=== PATIENT | female | born 1950 | race Caucasian/White ===

== ENCOUNTER 2017-12-29 10:00 | Outpatient (CLI) | payer MEDICARE, BC, SELFPAY | END 2017-12-29 10:01 | PROVIDERS: PCP Family Medicine; Visit Provider Psychiatry & Neurology Neurology | DX: G70.00 Myasthenia gravis without (acute) exacerbation (principal) | CPT/HCPCS: 99214 ==

== ENCOUNTER → 2018-03-16 14:44 | Outpatient (BNVA) | payer MEDICARE, BC, SELFPAY | PROVIDERS: PCP Family Medicine; Visit Provider Psychiatry & Neurology Neurology | DX: G70.00 Myasthenia gravis without (acute) exacerbation (principal) | CPT/HCPCS: 99213; 99214 ==

== ENCOUNTER → 2018-06-15 10:19 | Outpatient (BNVA) | payer MEDICARE, BC, SELFPAY | PROVIDERS: PCP Family Medicine; Visit Provider Psychiatry & Neurology Neurology | DX: G70.00 Myasthenia gravis without (acute) exacerbation (principal) | CPT/HCPCS: 99214 ==

== ENCOUNTER → 2018-08-06 12:12 | Outpatient (BNVA) | payer MEDICARE, BC, SELFPAY | PROVIDERS: PCP Family Medicine; Visit Provider Psychiatry & Neurology Neurology | DX: G70.00 Myasthenia gravis without (acute) exacerbation (principal); G91.9 Hydrocephalus, unspecified | CPT/HCPCS: 62270; 99213 ==

== ENCOUNTER 2018-10-27 11:20 | Outpatient (REF) | payer MEDICARE, BC, SELFPAY ==
[2018-10-27 22:16] LABS: Abs Immature Grans 0.01 k/cumm (0.0-0.09); Absolute Basophil Count 0.02 k/cumm (0.0-0.2); Absolute Eosinophil Count 0.09 k/cumm (0.0-0.7); Absolute Lymphocyte Count 1.29 k/cumm (1.2-3.4); Absolute Monocyte Count 0.66 k/cumm (0.11-0.7); Absolute Neutrophil Count 2.85 k/cumm (1.2-6.7); Basophils % 0.4; Eosinophils % 1.8; Immature Grans % 0.2; Lymphocytes % 26.2; Mean Corp. HGB Concentration 32.4 g/dL (32.0-36.0); Mean Corpuscular Hemoglobin 30.7 pg (27.0-33.0); Mean Platelet Volume 9.3 fL (8.0-11.0); Monocytes % 13.4; Platelet Count 407 x1000/uL (130-400); RBC 3.58 m/cumm (4.00-5.20); RBC Distribution Width 12.2 % (11.7-14.6); White Blood Cell Count 4.92 k/cumm (4.4-10.8)
[2018-10-27 22:24] LABS: Anion Gap 9.4 mmol/L (3-11); BUN 15 mg/dL (7-18); CO2 27.6 mmol/L (21.0-32.0); CREATININE 0.73 mg/dL (0.55-1.02); Calcium 9.7 mg/dL (8.5-10.1); Chloride 100 mmol/L (98-107); Glucose 80 mg/dL (70-100); Magnesium 2.2 mg/dL (1.8-2.4); Sodium 137 mmol/L (136-145)
== END 2018-10-27 11:40 ==
LOC: NCHCN 11:20
PROVIDERS: PCP Family Medicine; Visit Provider Family Medicine
DX: Z01.810 Encounter for preprocedural cardiovascular examination (principal); R25.2 Cramp and spasm; G91.2 (Idiopathic) normal pressure hydrocephalus
CPT/HCPCS: 80048; 83735; 85025

== ENCOUNTER 2019-01-28 10:40 | Outpatient (REF) | payer MEDICARE, BC, SELFPAY ==
[2019-01-28 21:26] LABS: Abs Immature Grans 0.01 k/cumm (0.0-0.09); Absolute Basophil Count 0.01 k/cumm (0.0-0.2); Absolute Eosinophil Count 0.04 k/cumm (0.0-0.7); Absolute Lymphocyte Count 0.96 k/cumm (1.2-3.4); Absolute Monocyte Count 0.64 k/cumm (0.11-0.7); Absolute Neutrophil Count 2.21 k/cumm (1.2-6.7); Basophils % 0.3; HCT 35.5 % (36.0-46.0); HGB 11.8 g/dL (12.0-15.5); Immature Grans % 0.3; Lymphocytes % 24.8; Mean Corp. HGB Concentration 33.2 g/dL (32.0-36.0); Mean Corpuscular Hemoglobin 30.5 pg (27.0-33.0); Mean Corpuscular Volume 91.7 fL (80-95); Mean Platelet Volume 9.2 fL (8.0-11.0); Monocytes % 16.5; Neutrophils % 57.1; Platelet Count 370 x1000/uL (130-400); RBC 3.87 m/cumm (4.00-5.20); RBC Distribution Width 13.7 % (11.7-14.6); White Blood Cell Count 3.87 k/cumm (4.4-10.8)
[2019-01-28 21:33] LABS: Iron 87 ug/dL (50-175); Total Iron Binding Capacity 253 ug/dL (250-450); Transferrin Sat 34 % (15-50)
[2019-01-28 22:17] LABS: ALT 24 U/L (14-59); AST 24 U/L (15-37); Albumin 4.2 g/dL (3.4-5.0); Alkaline Phosphatase 97 U/L (46-116); BUN 12 mg/dL (7-18); Bilirubin, Total 0.3 mg/dL (0.2-1.0); CREATININE 0.74 mg/dL (0.55-1.02); Calcium 9.6 mg/dL (8.5-10.1); Chloride 98 mmol/L (98-107); Ferritin 319 ng/mL (8-388); Glucose 84 mg/dL (70-100); Potassium 4.6 mmol/L (3.5-5.1); Sodium 133 mmol/L (136-145); Total Protein 7.7 g/dL (6.4-8.2); Vitamin B12 552 pg/mL (193-986)
[2019-01-28 22:49] LABS: Folate > 20.0 ng/mL (8.6-20.0)
[2019-01-28 22:56] LABS: Lipase 254 U/L (73-393)
== END 2019-01-28 11:00 ==
LOC: NCHCN 10:40
PROVIDERS: PCP Family Medicine; Visit Provider Family Medicine
DX: R10.9 Unspecified abdominal pain (principal); D53.9 Nutritional anemia, unspecified; R74.0 Nonspecific elevation of levels of transaminase and lactic acid dehydrogenase [LDH]
CPT/HCPCS: 80053; 83690; 82607; 82728; 82746; 83540; 83550; 85025

== ENCOUNTER 2019-06-01 08:33 | Outpatient (REF) | payer MEDICARE, BC, SELFPAY | END 2019-06-01 08:53 | LOC: NCHCN 08:33 | PROVIDERS: PCP Family Medicine; Visit Provider Family Medicine | DX: N39.46 Mixed incontinence (principal) | CPT/HCPCS: 81003 ==

== ENCOUNTER 2019-06-02 10:19 | Outpatient (REF) | payer MEDICARE, BC, SELFPAY ==
[2019-06-02 23:54] LABS: Bilirubin Negative (Negative); Blood Negative (Negative); Clarity Clear (Clear); Glucose Negative (Negative); Ketones Negative (Negative); Leukocyte Esterase Negative (Negative); Nitrite Negative (Negative); Specific Gravity 1.015 (1.005-1.025); Urobilinogen 0.2 EU/dL (Up TO 0.2)
== END 2019-06-02 10:39 ==
LOC: NCHCN 10:19
PROVIDERS: PCP Family Medicine; Visit Provider Family Medicine
DX: N39.46 Mixed incontinence (principal)
CPT/HCPCS: 81003

== ENCOUNTER 2019-11-25 21:28 | Outpatient (REF) | payer MEDICARE, BC, SELFPAY ==
[2019-11-25 21:29] LABS: Vitamin D 25 Total 128.1 ng/ml (30-100)
== END 2019-11-25 21:48 ==
LOC: NCHCN 21:28
PROVIDERS: PCP Family Medicine; Visit Provider Family Medicine
DX: M81.0 Age-related osteoporosis without current pathological fracture (principal)
CPT/HCPCS: 82306

== ENCOUNTER 2020-03-20 19:38 | Outpatient (REF) | payer MEDICARE, BC, SELFPAY ==
[2020-03-20 21:35] LABS: Abs Immature Grans 0.02 10^3/uL (0.0-0.06); Absolute Basophil Count 0.03 10^3/uL (0.0-0.2); Absolute Eosinophil Count 0.04 10^3/uL (0.0-0.7); Absolute Lymphocyte Count 1.74 10^3/uL (1.2-3.4); Absolute Monocyte Count 0.57 10^3/uL (0.1-0.8); Absolute Neutrophil Count 3.72 10^3/uL (1.2-6.7); Basophils % 0.5; Eosinophils % 0.7; HCT 36.2 % (36.0-46.0); HGB 11.7 g/dL (11.2-15.7); Immature Grans % 0.3; Lymphocytes % 28.4; MCH 31.2 pg (27.0-33.0); MCHC 32.3 % (32.0-36.0); MCV 96.5 fL (80-95); MPV 8.8 fL (8.0-11.0); Monocytes % 9.3; Neutrophils % 60.8; Nucleated RBC 0 %; Platelet Count 406 10^3/uL (130-400); RBC 3.75 10^6/uL (3.93-5.22); RDW 13.2 % (11.7-14.6); RDW-SD 47.1 fL; WBC 6.12 10^3/uL (4.4-10.8)
[2020-03-20 22:23] LABS: ALT 27 U/L (14-59); AST 25 U/L (15-37); Alkaline Phosphatase 69 U/L (46-116); Anion Gap 6.3 mmol/L (3-11); BUN 16 mg/dL (7-18); Bilirubin, Total 0.3 mg/dL (0.2-1.0); CO2 28.7 mmol/L (21.0-32.0); CREATININE 0.88 mg/dL (0.55-1.02); Calcium 9.5 mg/dL (8.5-10.1); Chloride 100 mmol/L (98-107); Glucose 98 mg/dL (74-106); Potassium 4.3 mmol/L (3.5-5.1); Sodium 135 mmol/L (136-145); Total Protein 7.1 g/dL (6.4-8.2)
[2020-03-20 23:10] LABS: Vitamin D 25 Total 115.4 ng/ml (30-100)
== END 2020-03-20 19:58 ==
LOC: NCHCN 19:38
PROVIDERS: PCP Family Medicine; Visit Provider Nurse Practitioner Community Health
DX: G70.00 Myasthenia gravis without (acute) exacerbation (principal); Z00.01 Encounter for general adult medical examination with abnormal findings
CPT/HCPCS: 80053; 82306; 85025

== ENCOUNTER 2020-04-18 18:50 | Outpatient (REF) | payer MEDICARE, BC, SELFPAY ==
[2020-04-20 05:49] LABS: Vitamin D 25 Total 118.7 ng/ml (30-100)
== END 2020-04-18 19:10 ==
LOC: NCHCN 18:50
PROVIDERS: PCP Family Medicine; Visit Provider Family Medicine
DX: M81.0 Age-related osteoporosis without current pathological fracture (principal)
CPT/HCPCS: 82306

== ENCOUNTER 2020-06-02 15:40 | Outpatient (REF) | payer MEDICARE, BC, SELFPAY ==
[2020-06-02 21:28] LABS: Abs Immature Grans 0.05 10^3/uL (0.0-0.06); Absolute Basophil Count 0.03 10^3/uL (0.0-0.2); Absolute Eosinophil Count 0.01 10^3/uL (0.0-0.7); Absolute Lymphocyte Count 1.23 10^3/uL (1.2-3.4); Absolute Monocyte Count 0.58 10^3/uL (0.1-0.8); Absolute Neutrophil Count 7.38 10^3/uL (1.2-6.7); Basophils % 0.3; Eosinophils % 0.1; HCT 32.7 % (36.0-46.0); HGB 10.7 g/dL (11.2-15.7); Immature Grans % 0.5; Lymphocytes % 13.3; MCHC 32.7 % (32.0-36.0); MCV 100.9 fL (80-95); MPV 8.4 fL (8.0-11.0); Monocytes % 6.3; Neutrophils % 79.5; Nucleated RBC 0 %; Platelet Count 420 10^3/uL (130-400); RBC 3.24 10^6/uL (3.93-5.22); RDW 13.7 % (11.7-14.6); RDW-SD 51.3 fL; WBC 9.28 10^3/uL (4.4-10.8)
[2020-06-02 21:56] LABS: ALT 24 U/L (14-59); AST 20 U/L (15-37); Albumin 3.8 g/dL (3.4-5.0); Alkaline Phosphatase 62 U/L (46-116); Anion Gap 9.7 mmol/L (3-11); BUN 17 mg/dL (7-18); Bilirubin, Total 0.2 mg/dL (0.2-1.0); CO2 28.3 mmol/L (21.0-32.0); CREATININE 0.78 mg/dL (0.55-1.02); Calcium 8.8 mg/dL (8.5-10.1); Chloride 99 mmol/L (98-107); Glucose 102 mg/dL (74-106); Potassium 4.1 mmol/L (3.5-5.1); Sodium 137 mmol/L (136-145); TSH 0.84 uIU/mL (0.36-3.74); Total Protein 6.8 g/dL (6.4-8.2)
== END 2020-06-02 16:00 ==
LOC: NCHCN 15:40
PROVIDERS: PCP Family Medicine; Visit Provider Psychiatry & Neurology Neurology
DX: G70.00 Myasthenia gravis without (acute) exacerbation (principal); R53.83 Other fatigue; N39.46 Mixed incontinence
CPT/HCPCS: 80053; 84443; 85025; 87086

== ENCOUNTER 2022-07-05 15:33 | Outpatient (CLI) | payer MEDICARE, SELFPAY ==
[2022-07-05 20:58] LABS: Anion Gap 7.1 mmol/L (3-11); BUN 16 mg/dL (7-18); CO2 26.9 mmol/L (21.0-32.0); Calcium 9.3 mg/dL (8.5-10.1); Chloride 97 mmol/L (98-107); Estimated GFR 59.49 (mL/min/1.73m2); Glucose 152 mg/dL (74-106); Potassium 4.3 mmol/L (3.5-5.1); Sodium 131 mmol/L (136-145)
== END 2022-07-05 15:34 | disposition home or self-care (01) ==
LOC: NCHCN 15:34
PROVIDERS: PCP Family Medicine; Visit Provider Family Medicine
DX: I10 Essential (primary) hypertension (principal)
CPT/HCPCS: 80048

== ENCOUNTER 2023-04-04 21:01 | Outpatient (REF) | payer MEDICARE, SELFPAY ==
[2023-04-04 21:12] LABS: HCT 22.4 % (36.0-46.0); MCH 34.3 pg (27.0-33.0); MCHC 32.6 % (32.0-36.0); MPV 9.5 fL (8.0-11.0); Platelet Count 355 10^3/uL (130-400); RBC 2.13 10^6/uL (3.93-5.22); RDW 15.3 % (11.7-14.6); RDW-SD 59.4 fL; WBC 5.65 10^3/uL (4.4-10.8)
[2023-04-04 21:22] LABS: Iron 38 ug/dL (50-170); Total Iron Binding Capacity 265 ug/dL (250-450); Transferrin Sat 14 % (15-50)
[2023-04-04 21:32] LABS: Ferritin 432 ng/mL (8-252)
[2023-04-04 21:44] LABS: MCV 105 fL (80-95)
[2023-04-04 21:50] LABS: HGB 7.3 g/dL (11.2-15.7)
== END 2023-04-04 21:02 | disposition home or self-care (01) ==
LOC: NCHCN 21:01
PROVIDERS: PCP Family Medicine; Visit Provider Family Medicine
DX: D64.9 Anemia, unspecified (principal)
CPT/HCPCS: 85027; 82728; 83540; 83550

== ENCOUNTER 2023-04-24 21:37 | Outpatient (REF) | payer MEDICARE, SELFPAY | END 2023-04-24 21:38 | disposition home or self-care (01) | LOC: NCHCN 21:37 | PROVIDERS: PCP Family Medicine; Visit Provider Family Medicine | DX: D53.9 Nutritional anemia, unspecified (principal) | CPT/HCPCS: 85018 ==

== ENCOUNTER 2023-06-02 15:23 | Outpatient (REF) | payer MEDICARE, SELFPAY ==
[2023-06-02 21:30] LABS: COMMENT (LAB VIEW ONLY) 98.53 mg/dL; Microalb ug/mg Crea 11.3 ug/mg Cr
== END 2023-06-02 15:24 | disposition home or self-care (01) ==
LOC: NCHCN 15:23
PROVIDERS: PCP Family Medicine; Visit Provider Family Medicine
DX: R73.03 Prediabetes (principal)
CPT/HCPCS: 82043; 82570

== ENCOUNTER 2023-08-25 11:04 | Outpatient (REF) | payer MEDICARE, SELFPAY ==
[2023-08-25 14:09] LABS: HCT 33.5 % (36.0-46.0); HGB 10.6 g/dL (11.2-15.7); MCH 31.3 pg (27.0-33.0); MCHC 31.6 % (32.0-36.0); MCV 99 fL (80-95); MPV 8.4 fL (8.0-11.0); Platelet Count 417 10^3/uL (130-400); RBC 3.39 10^6/uL (3.93-5.22); RDW 13.3 % (11.7-14.6); RDW-SD 47.8 fL; WBC 10.61 10^3/uL (4.4-10.8)
[2023-08-25 14:30] LABS: Hemoglobin A1C 6.2 % (<5.7)
[2023-08-25 14:36] LABS: Anion Gap 9.6 mmol/L (3-11); BUN 15 mg/dL (7-18); CO2 28.4 mmol/L (21.0-32.0); CREATININE 0.9 mg/dL (0.55-1.02); Calcium 9.7 mg/dL (8.5-10.1); Chloride 102 mmol/L (98-107); Estimated GFR 67.08 (mL/min/1.73m2); Ferritin 95 ng/mL (8-252); Glucose 101 mg/dL (74-106); Potassium 4.4 mmol/L (3.5-5.1); Sodium 140 mmol/L (136-145)
== END 2023-08-25 11:05 | disposition home or self-care (01) ==
LOC: NCHCN 11:04
PROVIDERS: PCP Family Medicine; Visit Provider Family Medicine
DX: R73.09 Other abnormal glucose (principal); D64.9 Anemia, unspecified; I10 Essential (primary) hypertension
CPT/HCPCS: 80048; 85027; 82728; 83036

== ENCOUNTER 2024-02-20 20:19 | Outpatient (REF) | payer MEDICARE, SELFPAY | END 2024-02-20 20:20 | disposition home or self-care (01) | LOC: NCHCN 20:19 | PROVIDERS: PCP Family Medicine; Visit Provider Family Medicine | DX: R35.0 Frequency of micturition (principal); R82.89 Other abnormal findings on cytological and histological examination of urine | CPT/HCPCS: 87086 ==

== ENCOUNTER 2025-01-13 17:15 | Outpatient (REF) | payer MEDICARE, SELFPAY ==
[2025-01-13 20:51] LABS: Abs Immature Grans 0.02 10^3/uL (0.0-0.06); HCT 29.5 % (36.0-46.0); HGB 9.5 g/dL (11.2-15.7); Immature Grans % 0.3 %; MCH 30.4 pg (27.0-33.0); MCHC 32.2 % (32.0-36.0); MCV 95 fL (80-95); MPV 8.5 fL (8.0-11.0); Platelet Count 434 10^3/uL (130-400); RBC 3.12 10^6/uL (3.93-5.22); RDW 14.4 % (11.7-14.6); RDW-SD 49.8 fL; WBC 7.20 10^3/uL (4.4-10.8)
[2025-01-13 21:22] LABS: Iron 39 ug/dL (50-170); Total Iron Binding Capacity 276 ug/dL (250-450)
[2025-01-13 21:47] LABS: ALT 19 U/L (14-59); AST 23 U/L (15-37); Albumin 3.9 g/dL (3.4-5.0); Alkaline Phosphatase 71 U/L (46-116); Anion Gap 8.4 mmol/L (3-11); BUN 19 mg/dL (7-18); Bilirubin, Total 0.2 mg/dL (0.2-1.0); CO2 27.6 mmol/L (21.0-32.0); Calcium 9.5 mg/dL (8.5-10.1); Chloride 98 mmol/L (98-107); Estimated GFR 76.79 (mL/min/1.73m2); Ferritin 89 ng/mL (8-252); Glucose 103 mg/dL (74-106); Potassium 4.2 mmol/L (3.5-5.1); Sodium 134 mmol/L (136-145); Total Protein 7.6 g/dL (6.4-8.2)
[2025-01-13 21:49] LABS: Vitamin B12 > 2000 pg/mL (193-986)
[2025-01-14 01:03] LABS: TSH (W/Ref FT4) 2.65 uIU/mL (0.36-3.74)
[2025-01-14 01:06] LABS: Folate > 20.0 ng/mL (8.6-20.0)
== END 2025-01-13 17:16 | disposition home or self-care (01) ==
LOC: NCHCN 17:15
PROVIDERS: PCP Family Medicine; Visit Provider Family Medicine
DX: D64.9 Anemia, unspecified (principal); R53.83 Other fatigue
CPT/HCPCS: 80053; 82607; 82728; 82746; 83540; 83550; 84238; 84443; 85025; 85045

== ENCOUNTER 2025-03-16 19:51 | Outpatient (REF) | payer MEDICARE, SELFPAY ==
[2025-03-16 21:00] LABS: BUN 15 mg/dL (7-18); Glucose 89 mg/dL (74-106); Sodium 131 mmol/L (136-145)
[2025-03-16 21:09] LABS: Anion Gap 10.7 mmol/L (3-11); CO2 28.3 mmol/L (21.0-32.0); Chloride 92 mmol/L (98-107); Estimated GFR 76.31 (mL/min/1.73m2); Potassium 4.0 mmol/L (3.5-5.1)
[2025-03-16 21:10] LABS: Calcium 11.5 mg/dL (8.5-10.1)
== END 2025-03-16 19:52 | disposition home or self-care (01) ==
LOC: NCHCN 19:51
PROVIDERS: PCP Family Medicine; Visit Provider Family Medicine
DX: E87.1 Hypo-osmolality and hyponatremia (principal)
CPT/HCPCS: 80048